=== PATIENT | male | born 1995 | race African-American/Black ===

== ENCOUNTER → 2020-01-28 | Emergency (ER) | payer OTHER ==
[~2020-01-28] VITALS: Ht 175.3 cm; Wt 70.5 kg
[2020-01-28 16:02] VITALS: BP 112/75; PULSE 69; TEMP 99
== END ==
LOC: COL.ER 15:52
DX: S51.812A Laceration without foreign body of left forearm, initial encounter (principal); Y92.89 Other specified places as the place of occurrence of the external cause; Y99.0 Civilian activity done for income or pay; W25.XXXA Contact with sharp glass, initial encounter